=== PATIENT | female | born 1950 | race Caucasian/White ===

== ENCOUNTER → 2018-01-26 | Outpatient (CLI) | payer MEDICARE ==
[~2018-01-26] MED LIST: ALBU1.25 NEB; CEFD300C37 PO; FLUT1AER INH; FLUT9.9S INH; GUAI400T66 PO; MONT4TAB5 PO; PRED10TA PO
== END | disposition home or self-care (01) ==
LOC: CFH 11:47
PROVIDERS: ATTEND Internal Medicine
DX: J45.51 Severe persistent asthma with (acute) exacerbation (principal)
CPT/HCPCS: 71250

== ENCOUNTER 2019-09-06 15:17 | Outpatient (CLI) | payer MEDICARE ==
[2019-09-06] MEDS ORDERED: MOME17SP NAS (22:27)
[2019-09-06] MEDS ORDERED: OXYB5TAB10 PO (22:27)
[2019-09-06] MEDS ORDERED: FLUT1AER INH (22:27)
[2019-09-06] MEDS ORDERED: LATA7.5D OP (22:27)
[2019-09-06] MEDS ORDERED: SPRIVA (22:27)
== END 2019-09-06 23:59 | disposition home or self-care (01) ==
LOC: RAD 15:17
PROVIDERS: ATTEND Physician Assistant
DX: R60.0 Localized edema (principal); M25.551 Pain in right hip; Z90.710 Acquired absence of both cervix and uterus

== ENCOUNTER 2019-09-06 18:27 | Inpatient (IN) | payer MEDICARE ==
[~2019-09-06] VITALS: Ht 167.6 cm; Wt 105.0 kg
--- NOTE | 2019-09-06 20:30 | NUR ---
hard candy spinner: pt not in lobby at this time
--- NOTE | 2019-09-06 20:36 | NUR ---
finance analyst: pt not in lobby at this time
--- NOTE | 2019-09-06 20:37 | NUR ---
computer security manager: Pt returned to lobby
--- NOTE | 2019-09-06 20:51 | NUR ---
nut chopper: Pt wheeled to ED [id number] from lobby in NAD from lobby at this time
--- NOTE | 2019-09-06 21:09 | NUR ---
PT C/O RIGHT GROIN/HIP PAIN. PT STATES SHE IS UNABLE TO WALK. PT REFERRED BY [facility]. STATED THAT IMAGING WAS DONE AT [facility] AND IT SHOWED ABSCESS TO RIGHT GROIN. MONITORS APPLIED, SIDERAILS UP X2, CALL LIGHT WITHIN REACH
[2019-09-06] MEDS ORDERED: MORPHINE SULFATE 4 MG/ML, 1ML IVPush PRN (21:30)
[2019-09-06] MEDS ORDERED: ONDANSETRON 2MG/ML, 2ML IVPush ONE (21:30)
[2019-09-06] MEDS ORDERED: SODIUM CHLORIDE FLUSH 10ML SYR IVF ONE (21:30)
[2019-09-06] MEDS ORDERED: ONDANSETRON 2MG/ML, 2ML ONE (21:37)
[2019-09-06] MEDS ORDERED: MORPHINE SULFATE 4 MG/ML, 1ML ONE (21:38)
--- NOTE | 2019-09-06 21:51 | NUR ---
IV SITE STARTED, PT MEDICATED PER MAR
[2019-09-06 21:59] LABS: HCT (SEDRATE) 44.6 % (34.6-47.8)
[2019-09-06 21:59] LABS: BASOPHILS # (AUTO) 0.12 x10^3/uL (0-0.1); BASOPHILS % (AUTO) 1 % (0-1); EOSINOPHILS # (AUTO) 0.14 x10^3/uL (0-0.4); EOSINOPHILS % (AUTO) 1 % (1-7); LYMPHOCYTES # (AUTO) 2.93 x10^3/uL (1-3.4); LYMPHOCYTES % (AUTO) 20 % (22-44); MD NO; MEAN CORPUSCULAR HEMOGLOBIN 30.3 pg (27.0-34.8); MEAN CORPUSCULAR HGB CONC 32.7 g/dL (32.4-35.8); MEAN CORPUSCULAR VOLUME 92.7 fL (80-100); MEAN PLATELET VOLUME 9.5 fL (7.4-10.4); MONOCYTES # (AUTO) 0.98 x10^3/uL (0.2-0.8); MONOCYTES % (AUTO) 7 % (2-9); NEUTROPHILS # (AUTO) 10.36 x10^3/uL (1.8-6.8); NEUTROPHILS % (AUTO) 71 % (42-75); PLATELET COUNT 292 x10^3/uL (130-400); RED BLOOD COUNT 4.86 x10^6/uL (3.82-5.3); RED CELL DISTRIBUTION WIDTH 13.8 % (9.6-15.2)
--- NOTE | 2019-09-06 22:03 | NUR ---
CT PENDING LAB/CREATINE.
--- NOTE | 2019-09-06 22:05 | NUR ---
PT UP TO RR VIA W/C AND STANDBY ASSIST, PROVIDED PT WITH URINE CUP
[2019-09-06 22:09] LABS: ALANINE AMINOTRANSFERASE 16 U/L (12-78); ALBUMIN 3.5 g/dL (3.4-5.0); ANION GAP 5 mmol/L (5-15); C-REACTIVE PROTEIN, QUANT 0.15 mg/dL (0.02-0.49); CALCIUM 8.6 mg/dL (8.5-10.1); CHLORIDE 112 mmol/L (98-107); CREATININE 0.76 mg/dL (0.55-1.02)
[2019-09-06 22:12] LABS: ALKALINE PHOSPHATASE 127 U/L (45-117); BILIRUBIN,TOTAL 0.8 mg/dL (0.2-1.0); TOTAL PROTEIN 7.2 g/dL (6.4-8.2)
--- NOTE | 2019-09-06 22:14 | NUR ---
URINE SAMPLE SENT
[2019-09-06] MEDS ORDERED: OXYB5TAB10 PO (22:27)
[2019-09-06] MEDS ORDERED: SPRIVA (22:27)
[2019-09-06] MEDS ORDERED: FLUT1AER INH (22:27)
[2019-09-06] MEDS ORDERED: LATA7.5D OP (22:27)
[2019-09-06] MEDS ORDERED: MOME17SP NAS (22:27)
[2019-09-06 22:55] LABS: CULTURE INDICATED? YES; MICROSCOPIC INDICATED
[2019-09-06] MEDS ORDERED: methylPREDNISolone SOD SUCC 125 MG/2 ML ONE (23:10)
--- NOTE | 2019-09-06 23:14 | NUR ---
PT RESTING ON GWEN, FAMILY AT HER SIDE, PT MEDICATED PER MAR, MONITORS IN PLACE, CALL LIGHT WITHIN REACH.
[2019-09-06] MEDS ORDERED: methylPREDNISolone SOD SUCC 125 MG/2 ML IVPush ONE (23:30)
[2019-09-06] MEDS ORDERED: OMNIPAQUE 350 MG/ML, 100ML BOTTLE ONE (23:33)
[2019-09-07 00:14] VITALS: BP 126/74
[2019-09-07] MEDS ORDERED: ONDANSETRON ODT 4 MG PO PRN (00:30)
[2019-09-07] MEDS ORDERED: BISACODYL 10 MG SUPP PR PRN (00:30)
[2019-09-07] MEDS ORDERED: POLYETHYLENE GLYCOL 17 GM PACKET PO PRN (00:30)
[2019-09-07] MEDS ORDERED: morphine SULFATE 10 MG/ML, 1ML IVPush PRN (00:30)
[2019-09-07 01:14] VITALS: BP 116/64
[2019-09-07] MEDS: CEFTRIAXONE PMX 1GM/50ML 50 ML IV SCH (01:24)
[2019-09-07] MEDS: ALBUTEROL SULFATE 2.5 MG/3 ML NPPB SCH ×4 (04:00→21:17)
[2019-09-07 06:17] LABS: BASOPHILS # (AUTO) 0.01 x10^3/uL (0-0.1); BASOPHILS % (AUTO) 0 % (0-1); EOSINOPHILS # (AUTO) 0.14 x10^3/uL (0-0.4); EOSINOPHILS % (AUTO) 1 % (1-7); LYMPHOCYTES # (AUTO) 0.68 x10^3/uL (1-3.4); LYMPHOCYTES % (AUTO) 5 % (22-44); MD NO; MEAN CORPUSCULAR HEMOGLOBIN 30.7 pg (27.0-34.8); MEAN CORPUSCULAR HGB CONC 33.1 g/dL (32.4-35.8); MEAN CORPUSCULAR VOLUME 92.7 fL (80-100); MEAN PLATELET VOLUME 9.9 fL (7.4-10.4); MONOCYTES # (AUTO) 0.06 x10^3/uL (0.2-0.8); MONOCYTES % (AUTO) 1 % (2-9); NEUTROPHILS # (AUTO) 13.08 x10^3/uL (1.8-6.8); NEUTROPHILS % (AUTO) 94 % (42-75); PLATELET COUNT 294 x10^3/uL (130-400); RED BLOOD COUNT 4.76 x10^6/uL (3.82-5.3)
[2019-09-07 06:21] LABS: CHLORIDE 109 mmol/L (98-107)
[2019-09-07 06:28] LABS: ALANINE AMINOTRANSFERASE 17 U/L (12-78); ALBUMIN 3.4 g/dL (3.4-5.0); ALKALINE PHOSPHATASE 138 U/L (45-117); ANION GAP 7 mmol/L (5-15); BILIRUBIN,TOTAL 0.6 mg/dL (0.2-1.0); CALCIUM 8.8 mg/dL (8.5-10.1); CREATININE 0.88 mg/dL (0.55-1.02); TOTAL PROTEIN 7.3 g/dL (6.4-8.2)
[2019-09-07 09:00] VITALS: BP 128/75
[2019-09-07] MEDS: BUDESONIDE 0.5 MG/2 ML INHA INH SCH ×2 (09:00→21:17)
[2019-09-07] MEDS: OXYBUTYNIN CHLORIDE 5 MG TABLET PO SCH (09:14)
[2019-09-07] MEDS: methylPREDNISolone SOD SUCC 40 MG/ML IVPush SCH (09:14)
[2019-09-07] MEDS: SENNA/DOCUSATE TABLET PO SCH (09:14)
[2019-09-07] MEDS: SODIUM CHLORIDE FLUSH 10ML SYR IVF SCH ×2 (09:18→21:00)
[2019-09-07] MEDS: FLUTICASONE NASAL SPRAY 16GM NAS SCH (10:38)
[2019-09-07 14:25] VITALS: BP 128/79
[2019-09-07 16:59] LABS: INTERNATIONAL NORMALIZED RATIO 0.97 (0.93-1.1); PROTHROMBIN TIME 10.2 Seconds (9.6-11.5)
[2019-09-07 17:13] LABS: HEMOGLOBIN A1C 5.6 % (4.2-6.3)
[2019-09-07 20:17] VITALS: BP 134/79
[2019-09-08 00:47] VITALS: BP 110/67
[2019-09-08] MEDS: CEFTRIAXONE PMX 1GM/50ML 50 ML IV SCH (01:57)
[2019-09-08] MEDS: ALBUTEROL SULFATE 2.5 MG/3 ML NPPB SCH ×4 (02:24→21:00)
[2019-09-08] MEDS: ACETAMINOPHEN 325 MG TABLET PO PRN ×2 (03:47→10:22)
[2019-09-08 06:27] LABS: MEAN CORPUSCULAR HEMOGLOBIN 30.8 pg (27.0-34.8); MEAN CORPUSCULAR HGB CONC 32.9 g/dL (32.4-35.8); MEAN CORPUSCULAR VOLUME 93.5 fL (80-100); MEAN PLATELET VOLUME 9.9 fL (7.4-10.4); PLATELET COUNT 290 x10^3/uL (130-400); RED BLOOD COUNT 4.25 x10^6/uL (3.82-5.3)
[2019-09-08 06:39] LABS: ANION GAP 7 mmol/L (5-15); CALCIUM 8.8 mg/dL (8.5-10.1); CHLORIDE 110 mmol/L (98-107)
[2019-09-08 06:54] LABS: BASOPHILS # (AUTO) 0.06 x10^3/uL (0-0.1); BASOPHILS % (AUTO) 0 % (0-1); EOSINOPHILS # (AUTO) 0.25 x10^3/uL (0-0.4); EOSINOPHILS % (AUTO) 1 % (1-7); LYMPHOCYTES # (AUTO) 2.36 x10^3/uL (1-3.4); LYMPHOCYTES % (AUTO) 12 % (22-44); MD SCAN; MONOCYTES # (AUTO) 1.26 x10^3/uL (0.2-0.8); MONOCYTES % (AUTO) 6 % (2-9); NEUTROPHILS # (AUTO) 16.53 x10^3/uL (1.8-6.8); NEUTROPHILS % (AUTO) 81 % (42-75)
[2019-09-08 07:40] VITALS: BP 136/66
[2019-09-08 08:12] VITALS: BP 114/67
[2019-09-08] MEDS: BUDESONIDE 0.5 MG/2 ML INHA INH SCH ×2 (09:00→21:00)
[2019-09-08] MEDS: OXYBUTYNIN CHLORIDE 5 MG TABLET PO SCH (10:06)
[2019-09-08] MEDS: SENNA/DOCUSATE TABLET PO SCH (10:06)
[2019-09-08] MEDS: FLUTICASONE NASAL SPRAY 16GM NAS SCH (10:06)
[2019-09-08] MEDS: methylPREDNISolone SOD SUCC 40 MG/ML IVPush SCH (10:06)
[2019-09-08] MEDS: SODIUM CHLORIDE FLUSH 10ML SYR IVF SCH ×2 (10:07→22:22)
[2019-09-08 13:02] VITALS: BP 121/72
[2019-09-08] MEDS ORDERED: GADOTERATE 10 MMOL/20 ML SYR ONE (16:21)
[2019-09-08 21:09] VITALS: BP 114/72
[2019-09-09] MEDS: ALBUTEROL SULFATE 2.5 MG/3 ML NPPB SCH ×4 (03:00→20:42)
[2019-09-09 03:30] VITALS: BP 115/73
[2019-09-09 05:27] LABS: BASOPHILS # (AUTO) 0.09 x10^3/uL (0-0.1); BASOPHILS % (AUTO) 1 % (0-1); EOSINOPHILS # (AUTO) 0.18 x10^3/uL (0-0.4); EOSINOPHILS % (AUTO) 1 % (1-7); LYMPHOCYTES # (AUTO) 3.39 x10^3/uL (1-3.4); LYMPHOCYTES % (AUTO) 22 % (22-44); MD NO; MEAN CORPUSCULAR HEMOGLOBIN 30.6 pg (27.0-34.8); MEAN CORPUSCULAR HGB CONC 32.6 g/dL (32.4-35.8); MEAN CORPUSCULAR VOLUME 93.7 fL (80-100); MEAN PLATELET VOLUME 9.5 fL (7.4-10.4); MONOCYTES # (AUTO) 1.02 x10^3/uL (0.2-0.8); MONOCYTES % (AUTO) 7 % (2-9); NEUTROPHILS # (AUTO) 10.62 x10^3/uL (1.8-6.8); NEUTROPHILS % (AUTO) 69 % (42-75); PLATELET COUNT 262 x10^3/uL (130-400); RED BLOOD COUNT 4.28 x10^6/uL (3.82-5.3); RED CELL DISTRIBUTION WIDTH 14.4 % (9.6-15.2)
[2019-09-09 05:29] LABS: ANION GAP 5 mmol/L (5-15); CALCIUM 8.4 mg/dL (8.5-10.1); CHLORIDE 109 mmol/L (98-107); CREATININE 0.53 mg/dL (0.55-1.02)
[2019-09-09 07:07] VITALS: BP 116/69
[2019-09-09] MEDS: BUDESONIDE 0.5 MG/2 ML INHA INH SCH ×2 (08:55→20:42)
[2019-09-09] MEDS: FLUTICASONE NASAL SPRAY 16GM NAS SCH (09:24)
[2019-09-09] MEDS: SENNA/DOCUSATE TABLET PO SCH (09:24)
[2019-09-09] MEDS: SODIUM CHLORIDE FLUSH 10ML SYR IVF SCH ×2 (09:25→21:41)
[2019-09-09] MEDS: OXYBUTYNIN CHLORIDE 5 MG TABLET PO SCH (09:27)
[2019-09-09 12:38] VITALS: BP 121/73
[2019-09-09 19:31] VITALS: BP 113/72
[2019-09-09] MEDS: ACETAMINOPHEN 325 MG TABLET PO PRN (21:40)
[2019-09-10] MEDS: ALBUTEROL SULFATE 2.5 MG/3 ML NPPB SCH ×2 (02:04→09:30)
[2019-09-10 03:03] VITALS: BP 117/73
[2019-09-10 05:21] LABS: BASOPHILS # (AUTO) 0.06 x10^3/uL (0-0.1); BASOPHILS % (AUTO) 1 % (0-1); EOSINOPHILS # (AUTO) 0.16 x10^3/uL (0-0.4); EOSINOPHILS % (AUTO) 2 % (1-7); LYMPHOCYTES # (AUTO) 2.71 x10^3/uL (1-3.4); LYMPHOCYTES % (AUTO) 28 % (22-44); MD NO; MEAN CORPUSCULAR HEMOGLOBIN 30.6 pg (27.0-34.8); MEAN CORPUSCULAR HGB CONC 32.6 g/dL (32.4-35.8); MEAN CORPUSCULAR VOLUME 93.8 fL (80-100); MEAN PLATELET VOLUME 9.5 fL (7.4-10.4); MONOCYTES # (AUTO) 0.74 x10^3/uL (0.2-0.8); MONOCYTES % (AUTO) 7 % (2-9); NEUTROPHILS # (AUTO) 6.22 x10^3/uL (1.8-6.8); NEUTROPHILS % (AUTO) 63 % (42-75); PLATELET COUNT 278 x10^3/uL (130-400); RED BLOOD COUNT 4.23 x10^6/uL (3.82-5.3)
[2019-09-10 05:27] LABS: ANION GAP 4 mmol/L (5-15); CALCIUM 8.3 mg/dL (8.5-10.1); CHLORIDE 109 mmol/L (98-107); CREATININE 0.64 mg/dL (0.55-1.02)
[2019-09-10 07:41] VITALS: BP 150/66
[2019-09-10] MEDS: ACETAMINOPHEN 325 MG TABLET PO PRN (08:12)
[2019-09-10] MEDS: OXYBUTYNIN CHLORIDE 5 MG TABLET PO SCH (08:12)
[2019-09-10] MEDS: SENNA/DOCUSATE TABLET PO SCH (08:12)
[2019-09-10] MEDS: FLUTICASONE NASAL SPRAY 16GM NAS SCH (08:12)
[2019-09-10] MEDS: SODIUM CHLORIDE FLUSH 10ML SYR IVF SCH (08:13)
[2019-09-10] MEDS: BUDESONIDE 0.5 MG/2 ML INHA INH SCH (09:30)
[2019-09-10 13:08] VITALS: BP 127/74
[2019-09-10] MEDS ORDERED: NAPR-850 PO (14:14)
== END 2019-09-10 14:20 | disposition home or self-care (01) | DRG 605 ==
LOC: ED 22:20 → EDIP 23:41 → 4EST 09-07 00:09 → 3N 09-08 21:38
PROVIDERS: ADMIT Internal Medicine; ATTEND Internal Medicine
DX: S70.11XA Contusion of right thigh, initial encounter (principal); N39.0 Urinary tract infection, site not specified; J45.909 Unspecified asthma, uncomplicated; E66.9 Obesity, unspecified; G89.29 Other chronic pain; M54.30 Sciatica, unspecified side; M51.36 Other intervertebral disc degeneration, lumbar region; T38.0X5A Adverse effect of glucocorticoids and synthetic analogues, initial encounter; Y92.89 Other specified places as the place of occurrence of the external cause; W18.30XA Fall on same level, unspecified, initial encounter; Y93.89 Activity, other specified; Z68.37 Body mass index [BMI] 37.0-37.9, adult; Y99.8 Other external cause status; Z90.710 Acquired absence of both cervix and uterus; Z83.3 Family history of diabetes mellitus; Z82.49 Family history of ischemic heart disease and other diseases of the circulatory system; Z82.3 Family history of stroke; D72.828 Other elevated white blood cell count
CPT/HCPCS: 36415; 71045; 72158; 74177; 80048; 80053; 81001; 82550; 83036; 83516; 83690; 84145; 84443; 85025; 85610; 85651; 85730; 86038; 86140; 86160; 86225; 86235; 86255; 86256; 86376; 86430; 86431; 87040; 87086; 94640; 99291; G0378; J0696; J2405; J7613; J7626; Q9967; A9575; J2920; J2930